=== PATIENT | female | born 1960 | race African-American/Black ===

== ENCOUNTER 2021-11-30 11:28 | Emergency (ER) | payer OTHER ==
[~2021-11-30] VITALS: Ht 167.6 cm; Wt 63.5 kg
--- NOTE | 2021-11-30 11:45 | NUR ---
Attempted to start saline lock x 2 with no success. Pt stated "I'm a hard stick and my veins roll, they usually have to use a butterfly needle". Pt did not want to proceed after the 2 unsuccessful attempts.
[2021-11-30] MEDS ORDERED: BENZONATATE 100 MG CAPSULE PO ONE (12:30)
[2021-11-30] MEDS ORDERED: ONDANSETRON ODT 4 MG TAB.RAPDIS SL ONE (12:30)
[2021-11-30] MEDS ORDERED: ONDANSETRON ODT 4 MG TAB.RAPDIS ONE (12:31)
[2021-11-30] MEDS ORDERED: BENZONATATE 100 MG CAPSULE ONE (12:31)
[2021-11-30] MEDS ORDERED: BENZ-13 PO (13:07)
[2021-11-30] MEDS ORDERED: ONDA8TAB13 PO (13:07)
--- NOTE | 2021-11-30 13:10 | NUR ---
Patient discharged to home in stable condition. Written and verbal after care instructions given. Patient verbalizes understanding of instructions. Stressed follow up or return to ER for worsening s/s.
[2021-11-30 14:38] VITALS: BP 129/81
== END 2021-11-30 14:38 | disposition home or self-care (01) ==
LOC: ER 11:28
DX: J20.8 Acute bronchitis due to other specified organisms (principal); Z20.822 Contact with and (suspected) exposure to COVID-19; R11.0 Nausea; I10 Essential (primary) hypertension; E11.9 Type 2 diabetes mellitus without complications
CPT/HCPCS: 71045; 93005; A4663; Q0162; U0003